=== PATIENT | female | born 1960 | race Hispanic/Latino ===

== ENCOUNTER 2018-02-09 12:27 | Inpatient (IN) | payer SELFPAY ==
[2018-02-09] MEDS ORDERED: ASPIRIN PO ONE (12:40)
[2018-02-09] MEDS ORDERED: NITRO-BID 2% TP ONE (12:55)
[2018-02-09] MEDS ORDERED: ZOFRAN IV ONE (12:55)
[2018-02-09] MEDS ORDERED: SUBLIMAZE IV ONE (12:55)
[2018-02-09 12:57] LABS: Basophils % (Auto) 0.7 % (0.0-1.8); Eosinophils # (Auto) 0.1 K/mm3 (0.0-0.4); Hematocrit 40.2 % (30.3-42.9); Hemoglobin 13.9 gm/dl (10.1-14.3); Lymphocytes # (Auto) 1.6 K/mm3 (1.2-5.4); Mean Corpuscular HGB Conc 35 % (30-34); Mean Corpuscular Hemoglobin 30 pg (28-32); Mean Corpuscular Volume 88 fl (79-97); Monocytes # (Auto) 0.4 K/mm3 (0.0-0.8); Monocytes % (Auto) 7.2 % (0.0-7.3); Platelet Count 165 K/mm3 (140-440); Red Blood Count 4.58 M/mm3 (3.65-5.03); Red Cell Distribution Width 13.5 % (13.2-15.2)
--- NOTE | 2018-02-09 13:01 | Emergency Department Report ---
HPI - General Chief Complaint: Chest Pain Time Seen by Provider: 02/09/18 12:48 - HPI HPI: Room 9 The patient is a 57-year-old female presenting with a chief complaint of chest pain. Patient states her symptoms began last night with substernal/left-sided chest pain described as a constant pressure in nature. Patient states she's had shortness of breath, diaphoresis and nausea without vomiting associated with her pain. The patient currently gets her pain score of 8/10. The patient states her last stress test and cardiac catheterization occurred in 2013 when she had a cardiac stent placed Location: Chest Duration: Constant since last night Quality: Pressure Severity: 8/10 Modifying factors: [see above] Context: [see above] Mode of transportation: [not driving] ED Past Medical Hx - Past Medical History Previous Medical History?: Yes Hx Hypertension: Yes Hx Heart Attack/AMI: Yes (December 07 2013) Hx Congestive Heart Failure: Yes Hx GERD: Yes Hx Seizures: Yes Hx COPD: Yes Additional medical history: Lupus, renal artery stenosis - Surgical History Past Surgical History?: Yes Hx Coronary Stent: Yes Hx Cholecystectomy: Yes Additional Surgical History: hysterectomy, csection x 2, pin in right ankle - Family History Family history: no significant - Social History Smoking Status: Former Smoker (none 30 days) Substance Use Type: None (denies illicit drug use), Prescribed - Medications Home Medications: Home Medications Medication Instructions Recorded Confirmed Last Taken Type Acetaminophen [Tylenol] 650 mg PO BID PRN 02/09/18 02/09/18 02/09/18 History Amlodipine Besylate [Norvasc] 5 mg PO DAILY 02/09/18 02/09/18 02/09/18 History Aspirin [Aspirin BABY CHEW TAB] 81 mg PO QDAY 02/09/18 02/09/18 02/09/18 History Carvedilol [Coreg] 3.125 mg PO BID 02/09/18 02/09/18 02/09/18 History Lisinopril/Hydrochlorothiazide 1 tab PO QDAY 02/09/18 02/09/18 02/09/18 History [Zestoretic 20-12.5 mg] ED Review of Systems ROS: Stated complaint: CHEST PAIN Other details as noted in HPI Constitutional: diaphoresis Eyes: denies: eye pain ENT: denies: throat pain Respiratory: shortness of breath Cardiovascular: chest pain Endocrine: no symptoms reported Gastrointestinal: nausea. denies: abdominal pain, vomiting Genitourinary: denies: dysuria Musculoskeletal: denies: back pain Neurological: denies: headache Physical Exam - Physical Exam Vital Signs: Vital Signs 02/09/18 02/09/18 02/09/18 12:35 12:50 12:55 Temperature 98.7 F Pulse Rate 89 89 Respiratory 22 22 Rate Blood Pressure 187/109 O2 Sat by Pulse 99 99 Oximetry Physical Exam: GENERAL: The patient is well-developed well-nourished female lying on stretcher not appearing to be in acute distress. [] HEENT: Normocephalic. Atraumatic. Extraocular motions are intact. Patient has moist mucous membranes. NECK: Supple. Trachea midline CHEST/LUNGS: Clear to auscultation. There is no respiratory distress noted. HEART/CARDIOVASCULAR: Regular. There is no tachycardia. There is no gallop rub or murmur. ABDOMEN: Abdomen is soft, nontender. Patient has normal bowel sounds. There is no abdominal distention. SKIN: There is no rash. There is no edema. There is no diaphoresis. NEURO: The patient is awake, alert, and oriented. The patient is cooperative. The patient has normal speech MUSCULOSKELETAL: There is no evidence of acute injury. ED Course Vital Signs 02/09/18 02/09/18 02/09/18 12:35 12:50 12:55 Temperature 98.7 F Pulse Rate 89 89 Respiratory 22 22 Rate Blood Pressure 187/109 O2 Sat by Pulse 99 99 Oximetry ED Medical Decision Making - Lab Data Result diagrams: 02/09/18 12:40 02/09/18 12:40 Laboratory Tests 02/09/18 02/09/18 12:40 12:40 WBC 6.0 RBC 4.58 Hgb 13.9 Hct 40.2 MCV 88 MCH 30 MCHC 35 H RDW 13.5 Plt Count 165 Lymph % (Auto) 27.0 [place] % (Auto) 7.2 Eos % (Auto) 2.0 Baso % (Auto) 0.7 Lymph # 1.6 [place] # 0.4 Eos # 0.1 Baso # 0.0 Seg Neutrophils % 63.1 Seg Neutrophils # 3.8 Sodium 142 Potassium 3.8 Chloride 104.4 Carbon Dioxide 24 Anion Gap 17 BUN 20 H Creatinine 0.7 Estimated GFR > 60 BUN/Creatinine Ratio 29 Glucose 124 H Calcium 9.2 Troponin T < 0.010 - EKG Data -: EKG Interpreted by Me EKG shows normal: sinus rhythm Rate: normal - EKG Data When compared to previous EKG there are: previous EKG unavailable Interpretation: nonspecific ST-T wave maria luisa (T-wave inversion in lead aVL) - Radiology Data Radiology results: image reviewed (chest x-ray) interpreted by me: Chest x-ray-no definite focal infiltrates, no pneumothorax - Differential Diagnosis ACS, GERD, pericarditis Critical care attestation.: If time is entered above; I have spent that time in minutes in the direct care of this critically ill patient, excluding procedure time. ED Disposition Clinical Impression: Chest pain Disposition: DC-09 OP ADMIT IP TO THIS HOSP Is pt being admited?: Yes Does the pt Need Aspirin: Yes Condition: Fair Instructions: Chest Pain (ED) Referrals: PRIMARY CARE, [Primary Care Provider] - 3-5 Days Time of Disposition: 13:24 (hospitalist paged (Dr Ireland))
[2018-02-09 13:19] LABS: BUN/Creatinine Ratio 29; Blood Urea Nitrogen 20 mg/dL (7-17); Calcium 9.2 mg/dL (8.4-10.2); Hemolysis Index 6
[2018-02-09 15:13] VITALS: BP 120/69
--- NOTE | 2018-02-09 15:32 | XRay Report ---
FINAL REPORT PROCEDURE: XR CHEST 1V AP TECHNIQUE: Chest radiograph anteroposterior view. CPT 58247 HISTORY: chest pain COMPARISON: No prior studies are available for comparison. FINDINGS: Heart: Normal. Mediastinum/Vessels: Normal. Lungs/Pleural space: No infiltrate, effusion, or pneumothorax. Bony thorax: No acute osseous abnormality. Life support devices: None. IMPRESSION: No radiographic evidence of acute cardiopulmonary abnormality.
[2018-02-09] MEDS ORDERED: PERCOCET 5/325 PO PRN (22:19)
[2018-02-09] MEDS ORDERED: SODIUM CHLORIDE FLUSH SYRINGE 10 ML IV PRN (22:19)
[2018-02-09] MEDS ORDERED: ZOFRAN IV PRN (22:19)
[2018-02-09] MEDS ORDERED: TYLENOL PO PRN ×2 (22:19→22:21)
[2018-02-09] MEDS ORDERED: MORPHINE IV PRN (22:19)
--- NOTE | 2018-02-09 22:19 | History and Physical Report ---
History of Present Illness Date of examination: 02/09/18 Date of admission: 02/09/18 13:26 Chief complaint: CC Left sided chest pain 1 say History of present illness: VARGHESE 57-year-old female presenting with a chief complaint of chest pain. Patient states her symptoms began last night with substernal/left-sided chest pain described as a constant pressure in nature. Patient states she's had shortness of breath, diaphoresis and nausea without vomiting associated with her pain. The patient currently gets her pain score of 8/10. The patient states her last stress test and cardiac catheterization occurred in 2013 when she had a cardiac stent placed Location: Chest Duration: Constant since last night Quality: Pressure Severity : 8/10 Modifying factors: [see above] Context: [see above] Mode of transportation: [not driving] Of NOTE Released from [employer] today Past Medical History Previous Medical History?: Yes Hx Hypertension: Yes Hx Heart Attack/AMI: Yes (December 07 2013) Hx Congestive Heart Failure: Yes Hx GERD: Yes Hx Seizures: Yes Hx COPD: Yes Additional medical history: Lupus, renal artery stenosis Surgical History Past Surgical History?: Yes Hx Coronary Stent: Yes Hx Cholecystectomy: Yes Additional Surgical History: hysterectomy, csection x 2, pin in right ankle -Family History Family history: no significant -Social History Smoking Status: Former Smoker (none 30 days) Substance Use Type: None (denies illicit drug use), Prescribed Medications and Allergies Allergies Allergy/AdvReac Type Severity Reaction Status Date / Time diltiazem HCl [From Cardizem] AdvReac Rash Verified 03/22/16 13:56 ketorolac tromethamine AdvReac Unknown Verified 03/22/16 13:56 [From Toradol] morphine AdvReac Itching Verified 03/22/16 13:56 Home Medications Medication Instructions Recorded Confirmed Last Taken Type Acetaminophen [Tylenol] 650 mg PO BID PRN 02/09/18 02/09/18 02/09/18 History Amlodipine Besylate [Norvasc] 5 mg PO DAILY 02/09/18 02/09/18 02/09/18 History Aspirin [Aspirin BABY CHEW TAB] 81 mg PO QDAY 02/09/18 02/09/18 02/09/18 History Carvedilol [Coreg] 3.125 mg PO BID 02/09/18 02/09/18 02/09/18 History Lisinopril/Hydrochlorothiazide 1 tab PO QDAY 02/09/18 02/09/18 02/09/18 History [Zestoretic 20-12.5 mg] Review of Systems All systems: negative Cardiovascular: chest pain, no orthopnea, no palpitations, no rapid/irregular heart beat, no edema, no syncope, no lightheadedness, no shortness of breath Gastrointestinal: no abdominal pain, no nausea, no vomiting, no diarrhea, no constipation Neurological: no seizures, no syncope Exam - Constitutional Vitals: Temp Pulse Resp BP Pulse Ox 98.7 F 62 16 120/69 98 02/09/18 12:35 02/09/18 15:12 02/09/18 15:12 02/09/18 15:12 02/09/18 15:12 General appearance: Present: no acute distress, well-nourished - EENT Eyes: Present: PERRL ENT: hearing intact, clear oral mucosa - Neck Neck: Present: supple, normal ROM - Respiratory Respiratory effort: normal Respiratory: bilateral: CTA - Cardiovascular Heart rate: 80 Rhythm: regular Heart Sounds: Present: S1 & S2. Absent: rub, click - Extremities Extremities: no ischemia, pulses intact, pulses symmetrical, No edema Peripheral Pulses: within normal limits - Abdominal General gastrointestinal: Present: soft, non-tender, non-distended, normal bowel sounds Female genitourinary: Present: normal - Rectal Rectal Exam: deferred - Integumentary Integumentary: Present: clear, warm, dry - Musculoskeletal Musculoskeletal: gait normal, strength equal bilaterally - Psychiatric Psychiatric: appropriate mood/affect, intact judgment & insight - Neurologic Neurologic: CNII-XII intact, moves all extremities - Allied Health Allied health notes reviewed: nursing, case management Results - Labs CBC & Chem 7: 02/09/18 12:40 02/09/18 12:40 Labs: Laboratory Last Values WBC 6.0 K/mm3 (4.5-11.0) 02/09/18 12:40 RBC 4.58 M/mm3 (3.65-5.03) 02/09/18 12:40 Hgb 13.9 gm/dl (10.1-14.3) 02/09/18 12:40 Hct 40.2 % (30.3-42.9) 02/09/18 12:40 MCV 88 fl (79-97) 02/09/18 12:40 MCH 30 pg (28-32) 02/09/18 12:40 MCHC 35 % (30-34) H 02/09/18 12:40 RDW 13.5 % (13.2-15.2) 02/09/18 12:40 Plt Count 165 K/mm3 (140-440) 02/09/18 12:40 Lymph % (Auto) 27.0 % (13.4-35.0) 02/09/18 12:40 [place] % (Auto) 7.2 % (0.0-7.3) 02/09/18 12:40 Eos % (Auto) 2.0 % (0.0-4.3) 02/09/18 12:40 Baso % (Auto) 0.7 % (0.0-1.8) 02/09/18 12:40 Lymph # 1.6 K/mm3 (1.2-5.4) 02/09/18 12:40 [place] # 0.4 K/mm3 (0.0-0.8) 02/09/18 12:40 Eos # 0.1 K/mm3 (0.0-0.4) 02/09/18 12:40 Baso # 0.0 K/mm3 (0.0-0.1) 02/09/18 12:40 Seg Neutrophils % 63.1 % (40.0-70.0) 02/09/18 12:40 Seg Neutrophils # 3.8 K/mm3 (1.8-7.7) 02/09/18 12:40 Sodium 142 mmol/L (137-145) 02/09/18 12:40 Potassium 3.8 mmol/L (3.6-5.0) 02/09/18 12:40 Chloride 104.4 mmol/L (98-107) 02/09/18 12:40 Carbon Dioxide 24 mmol/L (22-30) 02/09/18 12:40 Anion Gap 17 mmol/L 02/09/18 12:40 BUN 20 mg/dL (7-17) H 02/09/18 12:40 Creatinine 0.7 mg/dL (0.7-1.2) 02/09/18 12:40 Estimated GFR > 60 ml/min 02/09/18 12:40 BUN/Creatinine Ratio 29 % 02/09/18 12:40 Glucose 124 mg/dL (65-100) H 02/09/18 12:40 Calcium 9.2 mg/dL (8.4-10.2) 02/09/18 12:40 Troponin T < 0.010 ng/mL (0.00-0.029) 02/09/18 Unknown Short CBC 02/09/18 Range/Units 12:40 WBC 6.0 (4.5-11.0) K/mm3 Hgb 13.9 (10.1-14.3) gm/dl Hct 40.2 (30.3-42.9) % Plt Count 165 (140-440) K/mm3 BMP 02/09/18 12:40 Sodium 142 Potassium 3.8 Chloride 104.4 Carbon Dioxide 24 BUN 20 H Creatinine 0.7 Glucose 124 H Calcium 9.2 Cardiac Enzymes 02/09/18 02/09/18 Range/Units 12:40 Unknown Troponin T < 0.010 < 0.010 (0.00-0.029) ng/mL - Imaging and Cardiology EKG: report reviewed ( NSR 86/min No acute ST T wave changes) Chest x-ray: report reviewed (NAF) Assessment and Plan Advance Directives: Yes (FC) VTE prophylaxis?: Chemical Plan of care discussed with patient/family: Yes - Patient Problems (1) Chest pain Current Visit: Yes Status: Acute Qualifiers: Chest pain type: unspecified Qualified Code(s): R07.9 - Chest pain, unspecified Plan to address problem: Chest pain w/u Consuder GERD and Costochondritis serialTroponin Lexiscan in AM (2) HTN (hypertension) Current Visit: Yes Status: Chronic Qualifiers: Hypertension type: essential hypertension Qualified Code(s): I10 - Essential (primary) hypertension (3) CHF (congestive heart failure) Current Visit: Yes Status: Chronic Qualifiers: Heart failure type: combined systolic and diastolic Plan to address problem: BNP Slightly higd (4) DVT prophylaxis Current Visit: No Status: Acute Plan to address problem: On Lovenox
[2018-02-09] MEDS ORDERED: NACL 0.9% 1000 ML 1,000 ML IV SCH (23:00)
[2018-02-10] MEDS ORDERED: COREG PO SCH (10:00)
[2018-02-10] MEDS ORDERED: HCTZ PO SCH (10:00)
[2018-02-10] MEDS ORDERED: SODIUM CHLORIDE FLUSH SYRINGE 10 ML IV SCH (10:00)
[2018-02-10] MEDS ORDERED: BABY ASPIRIN PO SCH (10:00)
[2018-02-10] MEDS ORDERED: NORVASC PO SCH (10:00)
[2018-02-10] MEDS ORDERED: NON-FORMULARY (Lisinopril/Hydrochlorothiazide [Zestoretic 20-12.5 Mg] 1 TAB) PO SCH (10:00)
[2018-02-10] MEDS ORDERED: ZESTRIL PO SCH (10:00)
[2018-02-10] MEDS ORDERED: LOVENOX SUB-Q SCH (22:00)
== END 2018-02-09 16:08 | disposition still patient (30) | DRG 206 ==
LOC: ED 12:27 → 4A 13:26
PROVIDERS: ADMIT Internal Medicine; ATTEND Internal Medicine
DX: M94.0 Chondrocostal junction syndrome [Tietze] (principal); I50.40 Unspecified combined systolic (congestive) and diastolic (congestive) heart failure; I11.0 Hypertensive heart disease with heart failure; K21.9 Gastro-esophageal reflux disease without esophagitis; J44.9 Chronic obstructive pulmonary disease, unspecified; Z90.49 Acquired absence of other specified parts of digestive tract; Z90.710 Acquired absence of both cervix and uterus; Z87.891 Personal history of nicotine dependence; Z95.5 Presence of coronary angioplasty implant and graft; I25.2 Old myocardial infarction; Z88.8 Allergy status to other drugs, medicaments and biological substances; Z88.5 Allergy status to narcotic agent; Z79.82 Long term (current) use of aspirin; Z79.899 Other long term (current) drug therapy
CPT/HCPCS: 36415; 71045; 80048; 84484; 85025; 93005; 93010; J2405; J3010